=== PATIENT | female | born 1950 | race Caucasian/White ===

== ENCOUNTER → 2023-11-21 12:45 | Outpatient (REF) | payer OTHER, SELFPAY | LOC: WDC 12:45 | PROVIDERS: ATTENDING PHYSICIAN Obstetrics & Gynecology Gynecology; FAMILY PHYSICIAN Family Medicine | DX: Z12.31 Encounter for screening mammogram for malignant neoplasm of breast (principal) | CPT/HCPCS: 77063; 77067 ==

== ENCOUNTER → 2024-01-07 11:23 | Outpatient (REF) | payer OTHER, SELFPAY | LOC: RAD 11:23 | PROVIDERS: ATTENDING PHYSICIAN Internal Medicine; FAMILY PHYSICIAN Family Medicine | DX: I65.21 Occlusion and stenosis of right carotid artery (principal) | CPT/HCPCS: 93880 ==

== ENCOUNTER → 2024-03-02 14:33 | Outpatient (REF) | payer OTHER, SELFPAY | LOC: RAD 14:33 | PROVIDERS: ATTENDING PHYSICIAN Physician Assistant; FAMILY PHYSICIAN Family Medicine | DX: K59.09 Other constipation (principal) | CPT/HCPCS: 74022 ==

== ENCOUNTER → 2024-04-13 15:32 | Outpatient (REF) | payer OTHER, SELFPAY ==
[2024-04-13 16:26] LABS: % Basophils 0.6 % (0-2); % Eosinophils 1.4 % (0-6); % Immature Granulocytes 0.4 % (0-0.5); % Monocytes 8.7 % (1.7-9.3); % Neutrophils 68.9 % (42.2-75.2); Absolute Eosinophils 0.1 10^3/uL (0-0.7); Absolute Lymphocytes 1.4 10^3/uL (1.2-3.4); Absolute Monocytes 0.6 10^3/uL (0.1-0.6); Absolute Neutrophils 4.9 10^3/uL (1.4-6.5); Hematocrit 32.2 % (37.0-47.0); Hemoglobin 10.8 g/dL (12.0-16.0); Mean Corp Hgb Conc. 33.5 g/dL (33.0-37.0); Mean Corpuscular Hgb 30.4 pg (27.0-31.0); Mean Corpuscular Volume 90.7 fL (81.0-99.0); Mean Platelet Volume 9.9 fL (7.4-10.4); Nucleated Red Blood Cells % 0 %; Platelet Count 350 10^3/uL (130-400); Red Blood Cell Count 3.55 10^6/uL (4.20-5.40); Red Cell Dist. Width 13.1 % (11.5-14.5); White Blood Cell Count 7.1 10^3/uL (4.8-10.8)
[2024-04-13 16:36] LABS: C-Reactive Protein < 5.00 mg/L (0.0-10.00)
[2024-04-13 16:49] LABS: Erythrocyte Sed Rate 18 mm/hour (0-20)
== END ==
LOC: REG 15:32
PROVIDERS: ATTENDING PHYSICIAN Ophthalmology; FAMILY PHYSICIAN Family Medicine
DX: M31.6 Other giant cell arteritis (principal)
CPT/HCPCS: 36415; 85025; 85652; 86140

== ENCOUNTER → 2024-12-03 12:13 | Outpatient (REF) | payer OTHER, SELFPAY | LOC: WDC 12:13 | PROVIDERS: ATTENDING PHYSICIAN Obstetrics & Gynecology Gynecology; FAMILY PHYSICIAN Family Medicine | DX: Z12.31 Encounter for screening mammogram for malignant neoplasm of breast (principal) | CPT/HCPCS: 77063; 77067 ==

== ENCOUNTER → 2025-01-15 11:12 | Outpatient (REF) | payer OTHER, SELFPAY | LOC: RAD 11:12 | PROVIDERS: ATTENDING PHYSICIAN Specialist; FAMILY PHYSICIAN Family Medicine | DX: M19.012 Primary osteoarthritis, left shoulder (principal) | CPT/HCPCS: 73200 ==

== ENCOUNTER → 2025-02-08 15:50 | Outpatient (REF) | payer OTHER, SELFPAY | LOC: RAD 15:50 | PROVIDERS: ATTENDING PHYSICIAN Internal Medicine; FAMILY PHYSICIAN Family Medicine | DX: I65.21 Occlusion and stenosis of right carotid artery (principal) | CPT/HCPCS: 93880 ==

== ENCOUNTER → 2025-02-11 14:22 | Outpatient (REF) | payer OTHER, SELFPAY | LOC: RCS 14:22 | PROVIDERS: ATTENDING PHYSICIAN Internal Medicine; FAMILY PHYSICIAN Family Medicine | DX: I65.21 Occlusion and stenosis of right carotid artery (principal); Z01.810 Encounter for preprocedural cardiovascular examination; I49.3 Ventricular premature depolarization; R06.09 Other forms of dyspnea | CPT/HCPCS: 93306 ==

== ENCOUNTER → 2025-02-15 12:49 | Outpatient (REF) | payer OTHER, SELFPAY | LOC: PET 12:49 | PROVIDERS: ATTENDING PHYSICIAN Internal Medicine | DX: Z01.810 Encounter for preprocedural cardiovascular examination (principal); I65.21 Occlusion and stenosis of right carotid artery; I49.3 Ventricular premature depolarization; R06.09 Other forms of dyspnea | CPT/HCPCS: 78431; A9555; J2785 ==

== ENCOUNTER 2025-03-22 05:54 | Inpatient (IN) | payer OTHER, SELFPAY ==
--- NOTE | 2025-01-13 13:11 | CM ---
CM spoke with patient via phone. Patient confirmed demographics. Patient lives independently with . Patient does have a history of VN, but is currently not on service. Patient does not have a history of SNF. Patient has a cane and walker, but
does not rely on them. Patient is active with her PCP. Patient uses [facility] for medication services.
Patient stated that she plans to participate in outpatient physical therapy when cleared at [facility].
PLAN: SARAH, outpatient PT when cleared by surgery.
[2025-03-07 11:35] LABS: Hematocrit 36.6 % (37.0-47.0); Hemoglobin 12.1 g/dL (12.0-16.0); Mean Corp Hgb Conc. 33.1 g/dL (33.0-37.0); Mean Corpuscular Volume 92.7 fL (81.0-99.0); Platelet Count 280 10^3/uL (130-400); Red Cell Dist. Width 13.1 % (11.5-14.5)
[2025-03-07 12:26] LABS: Glycohemoglobin (HgbA1c) 5.7 % (4.0-5.6)
[2025-03-07 12:33] LABS: ALT (SGPT) 17 U/L (0-35); AST (SGOT) 20 U/L (14-36); Albumin 4.5 g/dl (3.5-5.0); Alkaline Phosphatase 129 U/L (38-126); Blood Urea Nitrogen 25 mg/dl (7-17); Calcium 10.0 mg/dl (8.4-10.2); Carbon Dioxide 24 mmol/L (22-30); Chloride 107 mmol/L (98-107); Glucose 92 mg/dl (70-99); Potassium 5.1 mmol/L (3.5-5.1); Sodium 139 mmol/L (135-145); Total Protein 7.2 g/dl (6.3-8.2); eGFR > 60.00
[2025-03-07 14:06] VITALS: BMI 31.0
[2025-03-18 09:34] VITALS: BMI 31.0
[2025-03-22] VITALS (17 sets, daily range): BP systolic 127–148; BP diastolic 54–91; PULSE 98; O2SAT 98; BMI 31.0
[2025-03-22] MEDS: TYLENOL 1000 MG PO (06:39)
[2025-03-22] MEDS: NORMOSOL-R/PLASMALYTE-A 1000 IV ×2 (06:40→12:27)
--- NOTE | 2025-03-22 07:42 | W.PN.UPDATE ---
Update Note
Progress Note Update
L shoulder OA s/p L Reverse TSA w/ Dr Alvarez 03/22/25
- EARLY DISCHARGE
- s/p R TSA, 08/2023, w/ Dr Alvarez and R JORGE ALBERTO, 2010, by Dr Blake
DVT prophylaxis - ASA, b/l venous foot pumps
HTN - + parameters - monitor BP
PSVT, RBBB, and asymptomatic PVCs - monitor on tele
Mild right carotid artery stenosis - resume ASA but at 325 mg dosing for DVT prevention
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
- IS
GERD and Hiatal hernia - resume Protonix, Pepcid
Irritable bowel syndrome with constipation - resume Miralax daily with Colace and Senna
Peripheral neuropathy - no Gabapentin due to ADR
- Consider Lyrica
History of post-operative anemia - non-invasive hgb in AM
Hypertriglyceridemia
Familial hypercholesterolemia
Gastric and colon polyps
Diverticulosis
Hemorrhoids
Migraines
Multilevel degenerative disc disease with stenosis
Chronic fatigue syndrome
Keratitis sicca
Bilateral cataracts
COVID-19, 08/2022, treatment with Paxlovid
Lyme's disease 1998
Prediabetes, A1c 5.7
Obesity, BMI 31.0
[2025-03-22] MEDS: VITAMIN D3 (cholecalciferol) PO (13:00)
[2025-03-22] MEDS: ZETIA PO (13:00)
[2025-03-22] MEDS: ANCEF 5 IV ×2 (14:21→21:38)
[2025-03-22] MEDS: TYLENOL 650 MG PO ×4 (14:21→23:27)
[2025-03-22] MEDS: ASPIRIN 325 MG PO (17:02)
[2025-03-22] MEDS: PEPCID 40 MG PO (17:29)
[2025-03-22] MEDS: BACTROBAN 2% OINTMENT 1 APPLIC NASAL (19:55)
[2025-03-22] MEDS: COLACE 100 MG PO (19:55)
[2025-03-22] MEDS: SENOKOT 17.2 MG PO (19:55)
[2025-03-22] MEDS: NON-FORMULARY ITEM 14 MG PO (21:39)
[2025-03-23 03:00] VITALS: BP 126/52
[2025-03-23] MEDS: TYLENOL PO (04:59)
[2025-03-23] MEDS: ROXICODONE 5 MG PO (05:31)
[2025-03-23 06:06] VITALS: BMI 31.4
[2025-03-23 07:35] VITALS: BP 133/80
--- NOTE | 2025-03-23 08:24 | CM ---
Cm met with patient in room. IMM given. Patient confirmed will be available at 9am for transportation home. will also be available for assistance.
PLAN: home, outpatient OT/PT when medically cleared.
[2025-03-23] MEDS: VITAMIN D3 (cholecalciferol) 50 MCG PO (08:46)
[2025-03-23] MEDS: ASPIRIN 325 MG PO (08:46)
[2025-03-23] MEDS: TYLENOL 650 MG PO (08:46)
[2025-03-23] MEDS: DECADRON 4 MG PO (08:46)
[2025-03-23] MEDS: COLACE 100 MG PO (08:47)
[2025-03-23] MEDS: SENOKOT 17.2 MG PO (08:47)
[2025-03-23] MEDS: ZETIA 10 MG PO (08:47)
[2025-03-23] MEDS: MIRALAX 17 GRAMS PO (08:48)
[2025-03-23] MEDS: NON-FORMULARY ITEM 75 MG PO (08:51)
--- NOTE | 2025-03-23 08:53 | W.PN.ORTHO ---
Today's Communication / Plan
-
Await OT recs.
D/c this AM if remaining clinically stable.
Assessment
.
Distal Motor Intact: Yes
Dressing:
Scant areas of old incisional bleeding towards inferior end of dressing.
Assessment:
L shoulder OA s/p L Reverse TSA w/ Dr Alvarez 03/22/25
- EARLY DISCHARGE
- s/p R TSA, 08/2023, w/ Dr Alvarez and R JORGE ALBERTO, 2010, by Dr Blake
DVT prophylaxis - ASA, b/l venous foot pumps
HTN - + parameters - BPs overall stable
PSVT, RBBB, and asymptomatic PVCs - maintaining NSR on tele
Mild right carotid artery stenosis - resumed ASA but at 325 mg dosing for DVT prevention
Chronic VAIL - O2 stable on RA
- IS
GERD and Hiatal hernia - resumed Protonix, Pepcid
Irritable bowel syndrome with constipation - resumed Miralax daily with Colace and Senna
Peripheral neuropathy - no Gabapentin due to ADR
- Consider Lyrica
History of post-operative anemia - non-invasive hgb 10.0 POD 1
- Asymptomatic, hemodynamically stable
Hypertriglyceridemia
Familial hypercholesterolemia
Gastric and colon polyps
Diverticulosis
Hemorrhoids
Migraines
Multilevel degenerative disc disease with stenosis
Chronic fatigue syndrome
Keratitis sicca
Bilateral cataracts
COVID-19, 08/2022, treatment with Paxlovid
Lyme's disease 1998
Prediabetes, A1c 5.7
Obesity, BMI 31.0
�
Plan
.
Surgery / Date: L Reverse TSA w/ Dr Alvarez 03/22/25
DVT Prophylaxis: Aspirin
Activity:
Out of bed.
PT/OT
Discharge Plan: Home
Subjective
.
.:
Patient resting comfortably in her chair.
L shoulder pain w/ activity 3-12/02. Pain overall tolerable per patient.
Denies any new acute complaints.
Eager for potential d/c today.
Vital Signs and Labs
.
Vital Signs and Labs:
Lab Results
03/07/25 10:29
03/07/25 10:29
Temp Pulse Resp BP Pulse Ox
98.4 F 75 16 133/80 98
03/23/25 07:35 03/23/25 07:35 03/23/25 07:35 03/23/25 07:35 03/23/25 07:35
Non-invasive Hgb result: 10.0
Physical Exam
-
HEENT: No pallor, cyanosis, or jaundice. Throat clear.
NECK: Supple. No JVD.
RESPIRATORY: Lungs clear to auscultation.
CVS: S1, S2 normal. RRR.�
ABDOMEN: Soft, non-tender. No distension. Obese.
EXTREMITIES: + LUE sling. Able to wiggle fingers b/l. Good pearl glue drier/radial pulses b/l. B/l LE strength equal, no calf pain with palpation/dorsiflexion. Calves soft.
COAT TAILOR: AOx3. No focal deficits. director of academic grossly intact
[2025-03-23] MEDS: BACTROBAN 2% OINTMENT 1 APPLIC NASAL (08:54)
--- NOTE | 2025-03-23 09:05 | W.DS.TRANS ---
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
-
Discharge Instructions:
Sleep Apnea Risk Low
Discharge Diagnosis/Procedures L shoulder OA s/p L Reverse TSA w/ Dr Alvarez 03/22/
25
Diet Regular
Additional Diets Adequate hydration, minimize opioids, and wear
TEDs stockings to prevent low blood pressure/
dizziness.
Activity As tolerated
Additional Activity Non-weightbearing left upper extremity.
Use cane to ambulate.
Driving Restrictions Not until seen by your Dr
Bathing Restrictions OK to Shower
Wound Care Leave dressing on until seen by surgeon's office
for follow-up in 2 weeks.
Instructions:
Stand-Alone Forms: Total Shoulder Replacement D/C
Changes to Home Medications: Yes
Discharge Medications:
DC Medications w/original date entered in [employer]
pantoprazole 40 mg tablet,delayed release 40 mg PO DAILY@1100 Gastrointestinal issue 11/13/22
ezetimibe 10 mg tablet 10 mg PO DAILY Hyperlipidemia 11/14/22
biotin 10,000 mcg capsule 10,000 mcg PO DAILY 03/11/23
chlorpheniramine maleate 4 mg tablet 2 - 4 mg PO HS 03/11/23
guaifenesin 600 mg tablet, extended release 12 hr (Mucinex) 300 - 600 mg PO DAILYPRN PRN mucus congestion 03/11/23
magnesium citrate 125 mg capsule 150 mg PO DAILY 03/11/23
polyethylene glycol 3350 17 gram oral powder packet (HealthyLax) 17 g PO DAILY #30 ea 09/05/23
cholecalciferol (vitamin D3) 50 mcg (2,000 unit) capsule (Vitamin D3) 50 mcg PO DAILY 03/04/25
coQ10 (ubiquinol) 100 mg capsule 100 mg PO DAILY 03/04/25
Held on 03/23/25. Instructions: Resume on 03/29/25.
cyanocobalamin (vitamin B-12) 1,000 mcg/mL oral drops (Vitamin B-12) 1 ml PO DAILY 03/04/25
famotidine 40 mg tablet 40 mg PO HS 03/04/25
pediatric multivitamin (Flintstones Multivitamin chewable tablet) 2 tab PO DAILY 03/04/25
vitamins A,C,O-itpt-foakuj 2,148 mcg-113 mg-45 mg-17.4 mg tablet (PreserVision AREDS) 2 tab PO DAILY 03/04/25
dexamethasone 4 mg tablet 4 mg PO BID inflammation #6 tabs 03/07/25
doxycycline hyclate 100 mg capsule 100 mg PO BID infection prevention #10 caps 03/07/25
mupirocin 2 % topical ointment 1 applic topical BID infection prevention #1 tube 03/07/25
ondansetron 4 mg disintegrating tablet 4 mg PO Q6H PRN n/v #20 tabs 03/07/25
oxycodone 5 mg tablet 5 mg PO Q6H PRN 1 tab moderate pain, 2 tabs severe pain #30 tabs 03/07/25
Saccharomyces boulardii 250 mg capsule (Florastor) 250 mg PO BID #10 caps 03/23/25
acetaminophen 325 mg tablet 650 mg (2 x 325 mg) PO Q4HWA #60 tabs 03/23/25
aspirin 325 mg tablet 325 mg PO DAILY #30 tabs 03/23/25
eopqhacbgf-xydiurzautvrp-maggpwxl 50 mg-300 mg-40 mg capsule 1 cap PO Q6H PRN migraine #30 caps 03/23/25
cyclobenzaprine 5 mg tablet 5 mg PO HS PRN Spasms #1 tab 03/23/25
diclofenac sodium 75 mg tablet,delayed release 75 mg PO DAILY #14 tabs 03/23/25
dicyclomine 10 mg capsule 10 mg PO TIDPRN PRN GI Distress #30 caps 03/23/25
docusate sodium 100 mg capsule 100 mg PO BID #30 caps 03/23/25
sennosides 8.6 mg tablet (Lucy-irene) 17.2 mg (2 x 8.6 mg) PO BID #30 tabs 03/23/25
valsartan 80 mg tablet 80 mg PO DAILY Blood pressure #1 tab 03/23/25
Home Medication Changes
dexamethasone 4 mg tablet 4 mg PO BID inflammation #6 tabs 03/07/25
doxycycline hyclate 100 mg capsule 100 mg PO BID infection prevention #10 caps 03/07/25
mupirocin 2 % topical ointment 1 applic topical BID infection prevention #1 tube 03/07/25
ondansetron 4 mg disintegrating tablet 4 mg PO Q6H PRN n/v #20 tabs 03/07/25
oxycodone 5 mg tablet 5 mg PO Q6H PRN 1 tab moderate pain, 2 tabs severe pain #30 tabs 03/07/25
Saccharomyces boulardii 250 mg capsule (Florastor) 250 mg PO BID #10 caps 03/23/25
acetaminophen 325 mg tablet 650 mg (2 x 325 mg) PO Q4HWA #60 tabs 03/23/25
aspirin 325 mg tablet 325 mg PO DAILY #30 tabs 03/23/25
diclofenac sodium 75 mg tablet,delayed release 75 mg PO DAILY #14 tabs 03/23/25
docusate sodium 100 mg capsule 100 mg PO BID #30 caps 03/23/25
sennosides 8.6 mg tablet (Lucy-irene) 17.2 mg (2 x 8.6 mg) PO BID #30 tabs 03/23/25
Pending Results: No
[2025-03-23 09:09] VITALS: BP 130/83; BP 136/90; PULSE 83; O2SAT 99
== END 2025-03-23 11:10 | disposition home or self-care (01) | DRG 483 ==
LOC: 2 SOUTH 05:54
PROVIDERS: ADMITTING PHYSICIAN Specialist; FAMILY PHYSICIAN Family Medicine
PROC: 0RRK00Z Replacement of Left Shoulder Joint with Reverse Ball and Socket Synthetic Substitute, Open Approach (ICD-10-PCS; 2025-03-22)
DX: M19.012 Primary osteoarthritis, left shoulder (principal); I47.10 Supraventricular tachycardia, unspecified; E66.9 Obesity, unspecified; Z68.31 Body mass index [BMI] 31.0-31.9, adult; I10 Essential (primary) hypertension; E78.5 Hyperlipidemia, unspecified; K21.9 Gastro-esophageal reflux disease without esophagitis; G62.9 Polyneuropathy, unspecified; R73.03 Prediabetes; I49.3 Ventricular premature depolarization; I45.10 Unspecified right bundle-branch block; D64.9 Anemia, unspecified; I65.21 Occlusion and stenosis of right carotid artery; K58.1 Irritable bowel syndrome with constipation; Z96.611 Presence of right artificial shoulder joint; Z96.641 Presence of right artificial hip joint; Z79.82 Long term (current) use of aspirin
CPT/HCPCS: 36415; 73020; 80053; 83036; 85027; 87070; 93005; 97167; 97535; C1713; C1776

== ENCOUNTER 2025-08-01 09:48 | Inpatient (IN) | payer OTHER, SELFPAY ==
[2025-07-06 11:03] LABS: Hematocrit 38.7 % (37.0-47.0); Hemoglobin 12.6 g/dL (12.0-16.0); Mean Corp Hgb Conc. 32.6 g/dL (33.0-37.0); Mean Corpuscular Volume 92.1 fL (81.0-99.0); Platelet Count 305 10^3/uL (130-400); Red Cell Dist. Width 13.2 % (11.5-14.5)
[2025-07-06 11:25] LABS: ALT (SGPT) 16 U/L (0-35); AST (SGOT) 18 U/L (14-36); Albumin 4.5 g/dl (3.5-5.0); Alkaline Phosphatase 112 U/L (38-126); Blood Urea Nitrogen 20 mg/dl (7-17); Calcium 10.2 mg/dl (8.4-10.2); Carbon Dioxide 27 mmol/L (22-30); Chloride 103 mmol/L (98-107); Glucose 92 mg/dl (70-99); Potassium 4.9 mmol/L (3.5-5.1); Sodium 136 mmol/L (135-145); Total Protein 7.6 g/dl (6.3-8.2); eGFR > 60.00
[2025-07-06 12:00] LABS: Glycohemoglobin (HgbA1c) 5.7 % (4.0-5.9)
[2025-07-06 14:13] VITALS: BMI 31.3
[2025-07-06 14:55] VITALS: BMI 31.3
--- NOTE | 2025-07-13 15:09 | CM ---
Orthopedic Case Management Assessment
Demographics: confirmed
Living situation: patient lives with spouse in a [facility] style home, 1st floor set up with on small step and another step into kitchen.
Support Person Post Operatively: spouse who is very supportive
History of
VN: No
SNF: No
Outpatient Patient has made her outpatient appointment with [facility] in [place] for 08/03
Has patient purchased required equipment: yes, walker cane, grab bars, and commode
PCP: Dr Covarrubias
Pharmacy: [facility] in [place]
Post Operative Discharge Plan: Patient is an admit morning of surgery for a right TKA, patient will be for discharge to home with outpatient physical therapy that has been set up with [facility] in [place] for Friday 08/03.
[2025-08-01] VITALS (15 sets, daily range): BP systolic 104–151; BP diastolic 53–89; PULSE 69; O2SAT 100; BMI 31.3
[2025-08-01] MEDS: TYLENOL 650 MG PO ×4 (10:15→23:46)
[2025-08-01] MEDS: NORMOSOL-R/PLASMALYTE-A 1000 IV ×2 (10:15→15:34)
--- NOTE | 2025-08-01 13:07 | W.PN.ORTHO ---
Today's Communication / Plan
-
d/c when stable
Assessment
.
Assessment:
SVT/PVCs-tele
Plan
.
Surgery / Date: R TKA 08/01/25
DVT Prophylaxis: Aspirin
Activity:
Out of bed.
PT/OT
Discharge Plan: Home w/ Outpatient PT
Vital Signs and Labs
.
Vital Signs and Labs:
Lab Results
07/06/25 10:25
07/06/25 10:25
Temp Pulse Resp BP Pulse Ox
97.2 F 81 16 147/89 99
08/01/25 10:07 08/01/25 10:07 08/01/25 10:07 08/01/25 10:07 08/01/25 10:07
--- NOTE | 2025-08-01 13:21 | W.DS.TRANS ---
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
-
Discharge Instructions:
Sleep Apnea Risk Low
Discharge Diagnosis/Procedures R knee OA s/p R TKA w/ Dr Blake 08/01/25
Diet Regular
Additional Diets Adequate hydration, minimize opioids, and wear
TEDs stockings to prevent low blood pressure/
dizziness.
Activity As tolerated,With Walker
Driving Restrictions Not until seen by your Dr
Bathing Restrictions OK to Shower
Other Services PT
Wound Care Dressing to be removed 1 week post-surgery.
Juanito to be removed at 2 week follow-up with
surgeon's office.
Instructions:
Stand-Alone Forms: Total Hip/Knee Replacement D/C
Changes to Home Medications: Yes
Discharge Medications:
DC Medications w/original date entered in [employer]
pantoprazole 40 mg tablet,delayed release 40 mg PO DAILY@1100 Gastrointestinal issue 11/13/22
ezetimibe 10 mg tablet 10 mg PO DAILY Hyperlipidemia 11/14/22
biotin 10,000 mcg capsule 10,000 mcg PO DAILY 03/11/23
chlorpheniramine maleate 4 mg tablet 2 - 4 mg PO HS 03/11/23
guaifenesin 600 mg tablet, extended release 12 hr (Mucinex) 300 - 600 mg PO DAILYPRN PRN mucus congestion 03/11/23
magnesium citrate 125 mg capsule 150 mg PO DAILY 03/11/23
polyethylene glycol 3350 17 gram oral powder packet (HealthyLax) 17 g PO DAILY #30 ea 09/05/23
cholecalciferol (vitamin D3) 50 mcg (2,000 unit) capsule (Vitamin D3) 50 mcg PO DAILY 03/04/25
coQ10 (ubiquinol) 100 mg capsule 100 mg PO DAILY 03/04/25
Held on 08/01/25. Instructions: Resume on 08/09/25.
cyanocobalamin (vitamin B-12) 1,000 mcg/mL oral drops (Vitamin B-12) 1 ml PO DAILY 03/04/25
famotidine 40 mg tablet 40 mg PO HS 03/04/25
pediatric multivitamin (Flintstones Multivitamin chewable tablet) 2 tab PO DAILY 03/04/25
Held on 08/01/25. Instructions: Resume on 08/09/25.
vitamins A,C,L-rzgg-rlenbm 2,148 mcg-113 mg-45 mg-17.4 mg tablet (PreserVision AREDS) 1 tab PO DAILY 03/04/25
Held on 08/01/25. Instructions: Resume on 08/09/25.
fwbxophpsc-hdkgtzknxvxlm-inzoznyc 50 mg-300 mg-40 mg capsule 1 cap PO Q6H PRN migraine #30 caps 03/23/25
Culturelle 1 dose PO DAILY PRN GI 07/04/25
dexamethasone 4 mg tablet 4 mg PO BID Anti-inflammatory #5 tabs 07/06/25
mupirocin 2 % topical ointment 1 applic intranasal BID #1 tube 07/06/25
oxycodone 5 mg tablet 5 - 10 mg (1 - 2 x 5 mg) PO Q6H PRN moderate-severe pain #30 tabs 07/06/25
ondansetron HCl 4 mg tablet 4 mg PO Q6H PRN nausea and vomiting #30 tabs 07/20/25
acetaminophen 325 mg tablet (Tylenol) 650 mg (2 x 325 mg) PO QID #1 tab 08/01/25
aspirin 325 mg tablet 325 mg PO DAILY blood clot prevention #1 tab 08/01/25
diclofenac sodium 75 mg tablet,delayed release 75 mg PO DAILY Anti-inflammatory #0 tabs 08/01/25
docusate sodium 100 mg capsule (Colace) 100 mg PO BID stool softner #1 cap 08/01/25
magnesium hydroxide 400 mg/5 mL oral suspension (Milk of Magnesia) 30 ml PO HS PRN constipation #1 mL 08/01/25
sennosides 8.6 mg tablet (Senokot) 17.2 mg (2 x 8.6 mg) PO BID laxative #2 tabs 08/01/25
valsartan 80 mg tablet 80 mg PO DAILY Blood pressure #1 tab 08/01/25
Home Medication Changes
dexamethasone 4 mg tablet 4 mg PO BID Anti-inflammatory #5 tabs 07/06/25
mupirocin 2 % topical ointment 1 applic intranasal BID #1 tube 07/06/25
oxycodone 5 mg tablet 5 - 10 mg (1 - 2 x 5 mg) PO Q6H PRN moderate-severe pain #30 tabs 07/06/25
ondansetron HCl 4 mg tablet 4 mg PO Q6H PRN nausea and vomiting #30 tabs 07/20/25
acetaminophen 325 mg tablet (Tylenol) 650 mg (2 x 325 mg) PO QID #1 tab 08/01/25
aspirin 325 mg tablet 325 mg PO DAILY blood clot prevention #1 tab 08/01/25
diclofenac sodium 75 mg tablet,delayed release 75 mg PO DAILY Anti-inflammatory #0 tabs 08/01/25
docusate sodium 100 mg capsule (Colace) 100 mg PO BID stool softner #1 cap 08/01/25
magnesium hydroxide 400 mg/5 mL oral suspension (Milk of Magnesia) 30 ml PO HS PRN constipation #1 mL 08/01/25
sennosides 8.6 mg tablet (Senokot) 17.2 mg (2 x 8.6 mg) PO BID laxative #2 tabs 08/01/25
valsartan 80 mg tablet 80 mg PO DAILY Blood pressure #1 tab 08/01/25
Pending Results: No
[2025-08-01] MEDS: DILAUDID 0.5 MG IV ×2 (14:27→14:46)
[2025-08-01] MEDS: ROXICODONE 5 MG PO ×2 (15:33→21:24)
--- NOTE | 2025-08-01 16:54 | PTCARENOTE ---
pt admitted to 2S room 2101 @1615 from the PACU via bed. pt arrived awake and alert, oriented to room, environment, fall precautions and plan of care with verbalized understanding. at bedside. assessment and admission database completed
as documented. telemetry placed and reading SR in 70's. care ongoing.
[2025-08-01] MEDS: PROTONIX 40 MG PO (17:31)
[2025-08-01] MEDS: ASPIRIN 325 MG PO (18:11)
[2025-08-01] MEDS: MAGNESIUM OXIDE 400 MG PO (18:11)
[2025-08-01] MEDS: ZETIA 10 MG PO (18:11)
[2025-08-01] MEDS: ANCEF 5 IV (19:53)
[2025-08-01] MEDS: SENOKOT 17.2 MG PO (19:54)
[2025-08-01] MEDS: TORADOL 15 MG IV (19:54)
[2025-08-01] MEDS: COLACE 100 MG PO (19:54)
[2025-08-01] MEDS: BACTROBAN 2% OINTMENT 1 APPLIC NASAL (21:24)
[2025-08-01] MEDS: PEPCID 40 MG PO (21:24)
[2025-08-01] MEDS: DECADRON 4 MG IV (21:24)
[2025-08-02] MEDS: ROXICODONE 5 MG PO (02:44)
[2025-08-02] MEDS: ANCEF 5 IV (02:44)
[2025-08-02 03:10] VITALS: BP 122/77
--- NOTE | 2025-08-02 03:28 | PTCARENOTE ---
Assumed care of pt at 1900. Pt is A/O x3, pleasant and cooperative with care. OOB to chair at start of shift, assisted to BSC with x1/standby assist and walker, and then back to bed. Pt tolerated well, able to bear weight and adhere to precautions
for her right knee. Neurovascular checks ongoing Q4 hours, see flowsheet on worklist for details. Aquacel dressing to R knee intact with scant shadowing, unchanged from start of shift. Physical assessment as documented in nursing shift assessment
flowsheet. SR 60s on monitor. Medicated with PRN Oxycodone x2 this shift, see EMAR.
[2025-08-02] MEDS: TYLENOL PO (04:30)
--- NOTE | 2025-08-02 07:36 | CM ---
Chart reviewed including physical therapy notes and plan is for discharge to home with outpatient physical therapy at [facility] appointment on Friday 08/03. Spouse to provide transportation.
Plan; Home with outpatient physical therapy at [facility] appointment on Friday08/03/25
[2025-08-02 08:10] VITALS: BP 129/69
[2025-08-02] MEDS: BACTROBAN 2% OINTMENT 1 APPLIC NASAL (08:28)
[2025-08-02] MEDS: DECADRON 4 MG IV (08:30)
[2025-08-02] MEDS: ASPIRIN 325 MG PO (08:30)
[2025-08-02] MEDS: TORADOL 15 MG IV (08:30)
[2025-08-02] MEDS: TYLENOL 650 MG PO ×2 (08:31→12:08)
[2025-08-02] MEDS: ZETIA 10 MG PO (08:31)
[2025-08-02] MEDS: SENOKOT 17.2 MG PO (08:31)
[2025-08-02] MEDS: COLACE 100 MG PO (08:31)
[2025-08-02] MEDS: MAGNESIUM OXIDE 400 MG PO (08:31)
[2025-08-02] MEDS: ROXICODONE 10 MG PO (08:41)
[2025-08-02 11:25] VITALS: BP 117/63
--- NOTE | 2025-08-02 11:55 | W.PN.ORTHO ---
Today's Communication / Plan
-
d/c
Assessment
.
Distal Motor Intact: Yes
Dressing:
Clean, dry and intact.
Assessment:
SVT/PVCs-stable on tele
Plan
.
Surgery / Date: R TKA 08/01/25
DVT Prophylaxis: Aspirin
Activity:
Out of bed.
PT/OT
Discharge Plan: Home w/ Outpatient PT
Subjective
.
.:
Patient resting comfortably.
Vital Signs and Labs
.
Vital Signs and Labs:
Lab Results
07/06/25 10:25
07/06/25 10:25
Temp Pulse Resp BP Pulse Ox
98.3 F 83 16 129/69 96
08/02/25 08:10 08/02/25 08:10 08/02/25 08:10 08/02/25 08:10 08/02/25 08:10
Non-invasive Hgb result: 12.1
Physical Exam
-
HEENT: No pallor, cyanosis, or jaundice. Throat clear.
NECK: Supple. No JVD.
RESPIRATORY: Lungs clear to auscultation.
CVS: S1, S2 normal. RRR.� No murmur, rub or gallop.
ABDOMEN: Soft, non-tender. No distension. BS+/normal.
EXTREMITIES: strength equal, no calf pain with palpation
CUSTOMER SUPPORT CONSULTANT: AOx3. No focal deficits. waste machine tender grossly intact
[2025-08-02] MEDS: PROTONIX 40 MG PO (12:08)
== END 2025-08-02 12:56 | disposition home or self-care (01) | DRG 470 ==
LOC: 2 SOUTH 09:48
PROVIDERS: ADMITTING PHYSICIAN Specialist; FAMILY PHYSICIAN Family Medicine; REFERRING PHYSICIAN Internal Medicine Cardiovascular Disease
PROC: 0SRC0J9 Replacement of Right Knee Joint with Synthetic Substitute, Cemented, Open Approach (ICD-10-PCS; 2025-08-01)
DX: M17.11 Unilateral primary osteoarthritis, right knee (principal); I47.10 Supraventricular tachycardia, unspecified; I10 Essential (primary) hypertension; E78.49 Other hyperlipidemia; E78.1 Pure hyperglyceridemia; I65.21 Occlusion and stenosis of right carotid artery; I49.3 Ventricular premature depolarization; I45.10 Unspecified right bundle-branch block; R06.09 Other forms of dyspnea; K21.9 Gastro-esophageal reflux disease without esophagitis; K44.9 Diaphragmatic hernia without obstruction or gangrene; K58.2 Mixed irritable bowel syndrome; G43.909 Migraine, unspecified, not intractable, without status migrainosus; G62.9 Polyneuropathy, unspecified; G93.32 Myalgic encephalomyelitis/chronic fatigue syndrome; E66.9 Obesity, unspecified; M51.369 Other intervertebral disc degeneration, lumbar region without mention of lumbar back pain or lower extremity pain; M48.061 Spinal stenosis, lumbar region without neurogenic claudication; J30.2 Other seasonal allergic rhinitis; R73.03 Prediabetes; Z96.612 Presence of left artificial shoulder joint; Z96.611 Presence of right artificial shoulder joint; Z96.641 Presence of right artificial hip joint; Z85.828 Personal history of other malignant neoplasm of skin; Z79.82 Long term (current) use of aspirin; Z88.6 Allergy status to analgesic agent; Z88.1 Allergy status to other antibiotic agents; Z88.5 Allergy status to narcotic agent; Z88.0 Allergy status to penicillin; Z88.8 Allergy status to other drugs, medicaments and biological substances; Z98.1 Arthrodesis status; Z68.31 Body mass index [BMI] 31.0-31.9, adult; Z86.19 Personal history of other infectious and parasitic diseases
CPT/HCPCS: 36415; 73560; 80053; 83036; 85027; 87070; 93005; 97110; 97116; 97162; 97166; 97530; 97535; C1713; C1776